=== PATIENT | male | born 1990 | race Caucasian/White ===

== ENCOUNTER 2021-09-10 10:57 | Outpatient (REF) | payer SELFPAY ==
[2021-09-11 17:17] LABS: COVID-19 RT-PCR UVMMC Result Negative (Negative)
== END 2021-09-10 10:58 | disposition home or self-care (01) ==
LOC: NCHCN 10:57
PROVIDERS: PCP Family Medicine; Visit Provider Family Medicine
DX: Z20.822 Contact with and (suspected) exposure to COVID-19 (principal)
CPT/HCPCS: U0003

== ENCOUNTER 2021-10-14 17:38 | Outpatient (REF) | payer SELFPAY ==
[2021-10-16 16:07] LABS: COVID-19 RT-PCR UVMMC Result Positive (Negative)
== END 2021-10-14 17:39 | disposition home or self-care (01) ==
LOC: NCHCN 17:38
PROVIDERS: PCP Family Medicine; Visit Provider Family Medicine
DX: Z20.822 Contact with and (suspected) exposure to COVID-19 (principal)
CPT/HCPCS: U0003